=== PATIENT | female | born 2000 | race Caucasian/White ===

== ENCOUNTER 2020-02-21 18:39 | Emergency (ER) | payer OTHER, SELFPAY ==
--- NOTE | 2020-02-21 18:44 | ED.SKABFB ---
HPI - Skin/Abscess/Foreign Bdy General Chief complaint: Skin/Abscess/Foreign Body Stated complaint: possible spider bite Time Seen by Provider: 02/21/20 18:50 Source: patient and RN notes reviewed Mode of arrival: ambulatory Limitations: no limitations History of Present Illness HPI narrative: 19-year-old female presents with concern for possible bug bite on her buttock. Reports symptoms started on with an itchy bump. Reports the areas become slightly tender. She denies fever, chills, drainage from the area. Has no report of removing a tick, or any other insect. complaint: insect bite/sting Related Data Allergies Allergy/AdvReac Type Severity Reaction Status Date / Time No Known Allergies Allergy Mild Verified 05/09/10 16:52 Review of Systems Review of Systems: Narrative: CONSTITUTIONAL: Denies malaise, chills, sweats, or fever. ENT: Denies swollen lips, swollen tongue CARDIOVASCULAR: Denies chest pain, palpitations, or edema. RESPIRATORY: Denies cough or dyspnea. GASTROINTESTINAL: Denies nausea, vomiting, diarrhea SKIN: Reports itchy bump on her left buttock MUSCULOSKELETAL: Denies myalgia. All systems reviewed & are unremarkable except as noted in HPI and below PMFSH Comments At time of signature, agree with nursing past medical, surgical, social and family history. There is no relevant family history pertinent to the presenting complaint Exam Narrative: Exam Narrative: GENERAL: Well-appearing, well-nourished, and in no acute distress. HEAD: Normocephalic EYES: PERRLA, conjunctivae clear ENT: Mucous membranes moist. NECK: Supple. CHEST: No respiratory distress. Clear to auscultation. No bony deformities, no asymmetry. Speaks in full sentences. HEART: Regular rate and rhythm. No murmur heard. SKIN: Warm, dry. 2 pink papules noted to the left buttock with very mild surrounding erythema minimal induration less than 2 cm surrounding NEURO: Alert and oriented x3. PSYCH: Normal mood and affect Course Course Emergency Course: Patient is aware of diagnosis, understands and agrees to treatment plan. Anticipatory guidance given. Patient agrees to follow-up as directed and is aware of reasons to seek care at the emergency department. Portions of this record may have been created with voice recognition software Vital Signs Vital signs: Vital Signs Temperature 98.9 F 09/19/20 18:48 Pulse Rate 97 02/21/20 18:48 Respiratory Rate 18 02/21/20 18:48 Blood Pressure 129/73 02/21/20 18:48 Pulse Oximetry 100 02/21/20 18:48 Temperature 98.9 F 02/21/20 18:48 Pulse Rate 97 02/21/20 18:48 Respiratory Rate 18 02/21/20 18:48 Blood Pressure 129/73 02/21/20 18:48 Pulse Oximetry 100 02/21/20 18:48 Reviewed. MDM - Skin/Abscess/Foreign Bdy MDM Narrative Medical decision making narrative: Does not appear at this time to be erythema multiforme, bullous, SJS, TEN; no evidence at this time to suggest RMSF, endocarditis or Lyme disease; patient looks well, nontoxic and is tolerating oral intake; no neurologic signs or symptoms; no headache, photophobia or neck pain; afebrile; appropriate for initial outpatient treatment; discussed the importance of follow-up, patient agrees; question, viral exanthema, contact dermatitis, allergic dermatitis, eczema, urticaria, insect bite, cellulitis. No soft palate or uvula edema, no tongue, lip edema or other mucosal involvement, no respiratory compromise, no stridor, no wheezing, no wheezing, no history of syncope, no hypotension, no nausea, vomiting, or diarrhea. Instructed patient to go to nearest ER immediately for any worsening symptoms including but not limited to: fever, spreading rash, pain, sore throat, headache, dizziness, chest pain, trouble breathing, or any symptoms concerning to the patient. Differential Diagnosis Differential diagnosis: Likely abscess of skin or subcutaneous tissue, cellulitis and insect bites Critical Care Time Critical Ca
[2020-02-21 18:48] VITALS: BP 129/73; PULSE 97; RESP 18; TEMP 37.2; O2SAT 100
== END 2020-02-21 19:02 | disposition home or self-care (01) ==
PROVIDERS: Emergency Provider Nurse Practitioner
DX: S30.860A Insect bite (nonvenomous) of lower back and pelvis, initial encounter (principal); W57.XXXA Bitten or stung by nonvenomous insect and other nonvenomous arthropods, initial encounter
CPT/HCPCS: 99213; G0463

== ENCOUNTER 2020-07-08 14:29 | Emergency (ER) | payer OTHER, SELFPAY ==
--- NOTE | ~2020-07-08 | CT_ITS ---
EXAMINATION: CT abdomen pelvis w con DATE: 07/08/2020 17:03 INDICATION: Right flank pain. TECHNIQUE: Computed tomography (CT) of the abdomen and pelvis was performed with 99 mL Omnipaque 350 intravenous contrast. Automated exposure control and iterative reconstruction technique were employed . The dose-length product was 196.98 mGy-cm. COMPARISON: None. FINDINGS: The visualized portions of the lung bases are clear without pneumonia or pleural effusion. The heart size is normal. No pericardial effusion. The liver, gallbladder, spleen, pancreas, adrenal glands, and left kidney are normal. There is a 3 mm cyst in right kidney. There are no dilated loops of bowel. The appendix is normal. There are no pathologically enlarged lymph nodes. There is trace pe lvic ascites. The bones are unremarkable. IMPRESSION: 1. No etiology for the patient's symptoms. Reviewed, dictated and finalized at location [facility]. [facility] [employer]
[2020-07-08 14:47] VITALS: BP 93/62; PULSE 100; RESP 18; TEMP 36.3; O2SAT 100
[2020-07-08 15:17] LABS: Basophils Percent Auto 0.5 % (0.2-1.2); Eosinophils Absolute Auto 0.1 K/mm3 (0-0.3); Eosinophils Percent Auto 1.3 % (0-4.4); Hematocrit 35.6 % (37.0-47.0); Immature Granulocyte Absolute 0.03 K/mm3 (0.00-0.031); Immature Granulocyte Percent A 0.4 % (0-0.5); Lymphocytes Percent Auto 23.2 % (18.3-44.2); Mean Corpuscular HGB Conc 33.7 g/dl (32-36); Mean Corpuscular Hemoglobin 29.6 pg (26-34); Mean Corpuscular Volume 87.7 fl (80-100); Mean Platelet Volume 9.2 fl (7.4-10.4); Monocytes Absolute Auto 0.4 K/mm3 (0.1-0.6); Monocytes Percent Auto 4.8 % (2.6-8.5); Neutrophils Absolute Auto 5.4 K/mm3 (1.3-6.7); Neutrophils Percent Auto 69.8 % (45.5-73.1); Platelet Count Result 227 k/mm3 (150-375); Red Blood Count 4.06 M/mm3 (4.2-5.4); Red Cell Distribution Width 11.9 % (11.5-14.5); White Blood Count 7.8 K/mm3 (4.5-10.0)
[2020-07-08] MEDS: LACTATED RINGERS 1,000 ML 999 ML (15:29)
[2020-07-08 15:31] LABS: Blood Urea Nitrogen 18 mg/dL (7-17); Calcium 9.5 mg/dL (8.4-10.2); Carbon Dioxide 23 mmol/L (22-30); Chloride 105 mmol/L (98-107); Estimated CRCL calculation 70 ml/min; Estimated Glomerular Filt Rate > 60; Glucose 120 mg/dL (65-105); Potassium 3.3 mmol/L (3.4-5.0)
[2020-07-08 15:37] LABS: Anion Gap 10 mmol/L (8-16); Sodium 138 mmol/L (137-145)
[2020-07-08 16:10] LABS: Add Urine Microscopic? YES; Appearance Urine Clear (Clear); Bilirubin Urine Negative (Negative); Blood Urine 3+ (Negative); Color Urine Yellow (Yellow); Glucose Urine UA Negative (Negative); Ketones Urine Negative (Negative); Leukocyte Esterase Ur Negative LEU/UL (Negative); Mucus Urine Heavy /lpf; Nitrate Urine Negative (Negative); Protein Urine 1+ mg/dL (Negative); RBC Urine >75 /hpf (0-2); Specific Grav Ur 1.017 (1.001-1.035); Squamous Epithelial Cell Urine Rare /hpf (Few); Urobilinogen Urine Negative mg/dL (<2.0); WBC Urine 0-3 /hpf
--- NOTE | 2020-07-08 16:32 | ED.ABDPAIN ---
HPI - Abdominal Pain General Chief Complaint: Abdominal Pain Stated Complaint: Flank/Back Pain Time Seen by Provider: 07/08/20 14:53 Source: patient Mode of arrival: ambulatory Limitations: no limitations History of Present Illness HPI narrative: This 20-year-old female comes into the emergency department today with complaints of right lower back pain radiating from her lower back down towards her groin and abdomen. Patient states this has been going on for the past couple of days and has been getting progressively worse. She states it feels like a sharp stabbing pain. Patient denies ever having pain like this before. She notes that her period was a couple of weeks ago and normal for her. She notes she has been urinating with no difficulties and has had no problems with bowel movements. Related Data Allergies Allergy/AdvReac Type Severity Reaction Status Date / Time Iodinated Contrast Media Allergy Mild Hives Verified 07/08/20 18:54 Review of Systems Review of Systems: Narrative: CONSTITUTIONAL: Denies fever, chills, or sweats. EYES: Denies visual changes, redness, or discharge. ENT: Denies rhinorrhea, congestion, sore throat, or otalgia. CARDIOVASCULAR: Denies chest pain, palpitations, or edema. RESPIRATORY: Denies cough or dyspnea. GASTROINTESTINAL: Denies abdominal pain, nausea, vomiting, or diarrhea. GENITOURINARY: Denies dysuria or hematuria. Endorses right flank pain SKIN: Denies rash or itching. MUSCULOSKELETAL: Denies back pain, joint pain, or myalgia. NEUROLOGIC: Denies headache, numbness, dizziness, or weakness. PSYCHIATRIC: Denies anxiety or depression. Exam Narrative: Exam Narrative: GENERAL: Well-appearing, well-nourished, and in no acute distress. HEAD: Normocephalic, atraumatic. EYES: PERRLA and EOMI. ENT: Nares clear, no rhinorrhea or epistaxis. Mucous membranes moist. Oropharynx without tonsillar hypertrophy exudate or other lesions. Bilateral TMs pearly taylor nonbulging NECK: Supple. No adenopathy or masses. No carotid bruits or JVD CHEST: Clear to auscultation. No respiratory distress. No wheezes rales or rhonchi HEART: Regular rate and rhythm. No murmur heard. Normal peripheral pulses. ABDOMEN: Soft, nontender, nondistended, normal active bowel sounds. Right flank CVA tenderness EXTREMITIES: Normal range of motion. No edema. SKIN: Warm, dry, no rash. NEURO: No focal deficits. Alert and oriented x3. PSYCH: Normal mood and affect. Course Reevaluation(s) Reevaluation #1: Patient unfortunately likely had a reaction to the contrast from the CT scan. She returned from CT with pruritic hives. Patient was immediately given Benadryl and Solu-Medrol. I just reevaluated her and she is feeling better. Her hives are diminishing. Evaluated patient's pain did suddenly relieved prior to the CT scan. She stated that it stopped all at once and spontaneously. Mom's noted that they saw a little speck of something in her urine. In all likelihood based on the patient's story and exam she passed a kidney stone spontaneously. Time: 17:34 Reevaluation #2: Patient resting comfortably at this time she has had no resumption of her hives or any other allergic type symptoms. At this point feel she is safe for discharge. Time: 18:53 Vital Signs Vital signs: Vital Signs Temperature 36.3 C L 07/08/20 14:47 Pulse Rate 100 07/08/20 14:47 Respiratory Rate 18 07/08/20 14:47 Blood Pressure 93/62 L 07/08/20 14:47 Pulse Oximetry 100 07/08/20 14:47 Temperature 36.3 C L 07/08/20 14:47 Pulse Rate 100 07/08/20 14:47 Respiratory Rate 18 07/08/20 14:47 Blood Pressure 93/62 L 07/08/20 14:47 Pulse Oximetry 100 07/08/20 14:47 MDM - Abdominal Pain MDM Narrative Medical decision making narrative: In brief this is a 20-year-old female who came in with complaints of right lower flank pain. Patient had a sudden relief of her pain. Her urine was consistent with hematuria. This was likely secondary to a stone
[2020-07-08 17:00] VITALS: BP 118/72; PULSE 92; RESP 16; O2SAT 100
[2020-07-08] MEDS: diphenhydrAMINE HCl INJ 50 MG/ML VIAL 25 MG IV PUSH (17:22)
[2020-07-08] MEDS: methylPREDNISolone SOD SUCC 125 MG VIAL IV PUSH (17:22)
[2020-07-08 17:30] VITALS: BP 118/75; PULSE 95; RESP 18; O2SAT 100
[2020-07-08 19:09] VITALS: BP 113/67; PULSE 91; RESP 19; O2SAT 100
== END 2020-07-08 19:10 | disposition home or self-care (01) ==
PROVIDERS: Emergency Medicine Emergency Medical Services; Emergency Provider Emergency Medicine
DX: N20.0 Calculus of kidney (principal); T50.8X5A Adverse effect of diagnostic agents, initial encounter
CPT/HCPCS: 36415; 74177; 80048; 81001; 81025; 85025; 96361; 96374; 96375; 99284; J1200; J2930; J7120; Q9967

== ENCOUNTER 2020-12-23 04:17 | Emergency (ER) | payer OTHER, SELFPAY ==
[2020-12-23 04:22] VITALS: BP 99/66; PULSE 80; RESP 14; TEMP 37.7; O2SAT 100
[2020-12-23 04:42] LABS: Add Urine Microscopic? NO; Appearance Urine Clear (Clear); Bilirubin Urine Negative (Negative); Blood Urine Negative (Negative); Color Urine Yellow (Yellow); Glucose Urine UA Negative (Negative); Ketones Urine Negative (Negative); Leukocyte Esterase Ur Negative LEU/UL (Negative); Nitrate Urine Negative (Negative); Protein Urine Negative (Negative); Specific Grav Ur 1.015 (1.001-1.035); Urobilinogen Urine Negative mg/dL (<2.0)
[2020-12-23 04:44] VITALS: BP 111/68; PULSE 78
[2020-12-23 04:45] VITALS: BP 114/67; PULSE 87
[2020-12-23 04:46] VITALS: BP 119/68; PULSE 89
[2020-12-23 04:48] LABS: Basophils Percent Auto 0.2 % (0.2-1.2); Eosinophils Absolute Auto 0.1 K/mm3 (0-0.3); Eosinophils Percent Auto 0.6 % (0-4.4); Hematocrit 34.3 % (37.0-47.0); Hemoglobin 11.4 g/dL (12.0-15.0); Immature Granulocyte Absolute 0.03 K/mm3 (0.00-0.031); Immature Granulocyte Percent A 0.4 % (0-0.5); Lymphocytes Absolute Auto 1.02 K/mm3 (0.9-3.2); Lymphocytes Percent Auto 12.7 % (18.3-44.2); Mean Corpuscular HGB Conc 33.2 g/dl (32-36); Mean Corpuscular Hemoglobin 29.2 pg (26-34); Mean Corpuscular Volume 87.7 fl (80-100); Mean Platelet Volume 9.5 fl (7.4-10.4); Monocytes Absolute Auto 0.6 K/mm3 (0.1-0.6); Neutrophils Absolute Auto 6.3 K/mm3 (1.3-6.7); Neutrophils Percent Auto 79.1 % (45.5-73.1); Platelet Count Result 175 k/mm3 (150-375); Red Blood Count 3.91 M/mm3 (4.2-5.4); Red Cell Distribution Width 12.5 % (11.5-14.5)
[2020-12-23] MEDS: MORPHINE SULFATE (*CRX) 2 MG/ML INJ IV PUSH (05:00)
[2020-12-23] MEDS: ONDANSETRON INJ 4 MG/2 ML VIAL IV PUSH (05:00)
[2020-12-23] MEDS: SODIUM CHLORIDE 0.9% IV 1,000 ML 999 ML IV CONT (05:00)
[2020-12-23 05:08] LABS: Alanine Aminotransferase 44 U/L (4-35); Alkaline Phosphatase 48 U/L (38-126); Anion Gap 7 mmol/L (8-16); Aspartate Amino Transferase 84 U/L (14-36); Blood Urea Nitrogen 9 mg/dL (7-17); Calcium 9.3 mg/dL (8.4-10.2); Carbon Dioxide 27 mmol/L (22-30); Chloride 99 mmol/L (98-107); Estimated CRCL calculation 79 ml/min; Estimated Glomerular Filt Rate > 60; Glucose 103 mg/dL (65-110); Lipase 57 U/L (23-300); Potassium 3.8 mmol/L (3.4-5.0); Sodium 133 mmol/L (137-145)
--- NOTE | 2020-12-23 05:16 | ED.GENADULT ---
HPI - General Adult General Chief complaint: Nausea/Vomiting/Diarrhea Stated complaint: tonsilectomy tues - n/v Time Seen by Provider: 12/23/20 04:29 History of Present Illness HPI narrative: Patient 20-year-old female presents the emergency department with chief complaint of nausea and vomiting. Patient reports that she had her tonsils removed this week was doing somewhat okay pain was controlled with p.o. Percocet tonight started having nausea and vomiting patient reports she was unable to keep anything down reports that she feels very dehydrated the patient reports that her pain is not doing terrible this evening the patient states that she had no fevers with this no diarrhea reports no shortness of breath denies any vomiting or spitting up of blood Related Data Allergies Allergy/AdvReac Type Severity Reaction Status Date / Time Iodinated Contrast Media Allergy Mild Hives Verified 12/23/20 04:26 Review of Systems Review of Systems: Narrative: A 10 system review of systems was completed on the patient and is negative except for what is stated in the HPI. Nursing and ancillary documentation was reviewed. [facility], [facility] Social History Social History Gender identity (if verbalized by the patient): Female Exam Narrative: Exam Narrative: GENERAL: Well-appearing, well-nourished, and in no acute distress. HEAD: Normocephalic, atraumatic. EYES: PERRLA and EOMI. ENT: Nares clear, no rhinorrhea or epistaxis. Mucous membranes moist. Oropharynx there is eschar in place there is no active bleeding NECK: Supple. CHEST: Clear to auscultation. No respiratory distress. HEART: Regular rate and rhythm. No murmur heard. Normal peripheral pulses. ABDOMEN: Soft, nontender, nondistended, normal active bowel sounds. EXTREMITIES: Normal range of motion. No edema. SKIN: Warm, dry, no rash. NEURO: No focal deficits. Alert and oriented x3. PSYCH: Normal mood and affect. Course Vital Signs Vital signs: Vital Signs Temperature 37.7 C H 12/23/20 04:22 Pulse Rate 80 12/23/20 04:22 Respiratory Rate 14 12/23/20 04:22 Blood Pressure 99/66 L 12/23/20 04:22 Pulse Oximetry 100 12/23/20 04:22 Temperature 37.7 C H 12/23/20 04:22 Pulse Rate 72 12/23/20 05:39 Respiratory Rate 15 12/23/20 05:39 Blood Pressure 103/62 12/23/20 05:39 Pulse Oximetry 99 12/23/20 05:39 Medical Decision Making Vital Signs Vital Signs: Vital Signs Temperature 37.7 C H 12/23/20 04:22 Pulse Rate 80 12/23/20 04:22 Respiratory Rate 14 12/23/20 04:22 Blood Pressure 99/66 L 12/23/20 04:22 Pulse Oximetry 100 12/23/20 04:22 Temperature 37.7 C H 12/23/20 04:22 Pulse Rate 72 12/23/20 05:39 Respiratory Rate 15 12/23/20 05:39 Blood Pressure 103/62 12/23/20 05:39 Pulse Oximetry 99 12/23/20 05:39 Lab Data Result diagrams: 12/23/20 04:39 12/23/20 04:39 Labs: Lab Results 12/23/20 12/23/20 12/23/20 Range/Units 04:33 04:39 04:39 WBC 8.0 (4.5-10.0) K/mm3 RBC 3.91 L (4.2-5.4) M/mm3 Hgb 11.4 L (12.0-15.0) g/dL Hct 34.3 L (37.0-47.0) % MCV 87.7 (80-100) fl MCH 29.2 (26-34) pg MCHC 33.2 (32-36) g/dl RDW 12.5 (11.5-14.5) % Plt Count 175 (150-375) k/mm3 MPV 9.5 (7.4-10.4) fl Immature Gran % (Auto) 0.4 (0-0.5) % Neut % (Auto) 79.1 H (45.5-73.1) % Lymph % (Auto) 12.7 L (18.3-44.2) % [place] % (Auto) 7.0 (2.6-8.5) % Eos % (Auto) 0.6 (0-4.4) % Baso % (Auto) 0.2 (0.2-1.2) % Lymph # (Auto) 1.02 (0.9-3.2) K/mm3 [place] # (Auto) 0.6 (0.1-0.6) K/mm3 Eos # (Auto) 0.1 (0-0.3) K/mm3 Baso # (Auto) 0.0 (0.0-0.1) K/mm3 Abs Immat Gran (auto) 0.03 (0.00-0.031) K/mm3 Absolute Neuts (auto) 6.3 (1.3-6.7) K/mm3 Absolute Nucleated RBC 0.0 (0.0-0.012) K/mm3 Nucleated RBC % 0.0 (0.0-0.2) % Sodium 133 L (137-145) mmol/L Potassium
[2020-12-23 05:39] VITALS: BP 103/62; PULSE 72; RESP 15; O2SAT 99
[2020-12-23 06:43] VITALS: BP 105/62; PULSE 77; RESP 18; O2SAT 98
== END 2020-12-23 06:45 | disposition home or self-care (01) ==
PROVIDERS: Emergency Provider Emergency Medicine; PCP Family Medicine Sports Medicine
DX: R11.2 Nausea with vomiting, unspecified (principal); Z98.890 Other specified postprocedural states
CPT/HCPCS: 36415; 80053; 81003; 81025; 83690; 85025; 96361; 96374; 96375; 99284; J2270; J2405; J7030

== ENCOUNTER 2022-01-08 19:04 | Emergency (ER) | payer OTHER, SELFPAY ==
[2022-01-08 19:12] VITALS: BP 132/85; PULSE 79; RESP 18; TEMP 36.2; O2SAT 100
--- NOTE | 2022-01-08 19:14 | ED.SKABFB ---
HPI - Skin/Abscess/Foreign Bdy General Chief complaint: Skin/Abscess/Foreign Body Stated complaint: Rash Time Seen by Provider: 01/08/22 19:14 Source: patient Mode of arrival: ambulatory Limitations: no limitations History of Present Illness HPI narrative: 21 yo F presents with redness, swelling to R thigh with itching. Started last night and progressed while at work. Has not taken any medications to treat itching. Thinks she has insect bite. All systems reveiwed and negative except as noted above. Related Data Home Medications Medication Instructions Recorded Confirmed drospirenone 3 mg-ethinyl 1 tablet PO DAILY 01/08/22 01/08/22 estradiol 0.02 mg tablet (Sharron (28)) Allergies Allergy/AdvReac Type Severity Reaction Status Date / Time Iodinated Contrast Media Allergy Mild Hives Verified 01/08/22 19:24 Review of Systems Review of Systems: CONSTITUTIONAL: Denies fever, chills, or sweats. EYES: Denies visual changes, redness, or discharge. ENT: Denies rhinorrhea, congestion, sore throat, or otalgia. CARDIOVASCULAR: Denies chest pain, palpitations, or edema. RESPIRATORY: Denies cough or dyspnea. GASTROINTESTINAL: Denies abdominal pain, nausea, vomiting, or diarrhea. GENITOURINARY: Denies dysuria or hematuria. SKIN: Reports redness, swelling, itching right thigh. MUSCULOSKELETAL: Denies back pain, joint pain, or myalgia. NEUROLOGIC: Denies headache, numbness, or weakness. PSYCHIATRIC: Denies anxiety or depression. All other systems reviewed are negative, except as documented in HPI. PMFSH Social History Social History Gender identity (if verbalized by the patient): Female Comments At time of signature, agree with nursing past medical, surgical, social and family history. There is no relevant family history pertinent to the presenting complaint. Exam Narrative: GENERAL: This is a well-nourished, well-developed patient, in no apparent distress. HEAD: normocephalic, atraumatic. EYES: PERRL. Sclera clear/white. Vision is grossly intact. EARS: External ears normal NOSE: External nose normal NECK: Neck supple, non-tender without lymphadenopathy, masses or thyromegaly. CARDIOVASCULAR: Regular rate and rhythm without murmurs, gallops, or rubs. RESPIRATORY: Clear to auscultation. Breath sounds equal bilaterally. No wheezes, rales, or rhonchi. SKIN: warm, Dry, intact with no suspicious lesions or rash, good texture and turgor. erythema, mild swelling, warm to touch. approx. 6cm diameter. no induration or fluctuance. NEURO: awake, alert, and oriented to person, place and time. There were no obvious focal neurologic abnormalities. EXTREMITIES: No joint tenderness, effusion, or edema noted. Extrem: Upper/lower leg/hip images: 1. insect bite R thigh Course Course Level of Care: Express Care Visit Vital Signs Vital signs: Vital Signs Temperature 36.2 C L 01/08/22 19:12 Pulse Rate 79 01/08/22 19:12 Respiratory Rate 18 01/08/22 19:12 Blood Pressure 132/85 01/08/22 19:12 Pulse Oximetry 100 01/08/22 19:12 Oxygen Delivery Room Air 01/08/22 19:12 Temperature 36.2 C L 01/08/22 19:12 Pulse Rate 79 01/08/22 19:12 Respiratory Rate 18 01/08/22 19:12 Blood Pressure 132/85 01/08/22 19:12 Pulse Oximetry 100 01/08/22 19:12 Oxygen Delivery Room Air 01/08/22 19:12 reviewed MDM - Skin/Abscess/Foreign Bdy MDM Narrative Medical decision making narrative: Patient is aware of diagnosis, understands and agrees to treatment plan. Anticipatory guidance given. Patient agrees to follow-up as directed and is aware of reasons to seek care at the emergency department. Portions of this record may have been created with voice recognition software Discharge Plan Discharge Clinical Impression: Insect bite of right thigh Patient Disposition: Home, Self-Care Condition: Stable Instructions: Antibiotic Form, Insec
== END 2022-01-08 19:25 | disposition home or self-care (01) ==
PROVIDERS: Emergency Provider Nurse Practitioner Family; PCP Family Medicine Sports Medicine
DX: S70.361A Insect bite (nonvenomous), right thigh, initial encounter (principal); W57.XXXA Bitten or stung by nonvenomous insect and other nonvenomous arthropods, initial encounter
CPT/HCPCS: 99211; G0463

== ENCOUNTER 2024-10-03 19:40 | Outpatient (CLI) | payer OTHER, SELFPAY ==
--- OUTSIDE RECORDS SUMMARY | 2024-10-04 15:17 | XMS_ITS | Clinical Summary ---
Author Organization [facility] Address [facility] [place] [address] Care Team Providers Care Skidder Loader Name Role Phone Salina Walker MD Primary Care Provider + Encounters Date Type Department Care Team Description 09/26/2024 Telephone [facility] el[facility] [address] [place] [address] Salina Walker MD Orders (30Day Event Monitor Order) from Last 3 Months Social History Tobacco Use Types Packs/Day Years Used Date Smoking Tobacco: Never Assessed Comments Unknown Sex and Gender Information Value Date Recorded Sex Assigned at Not on file Legal Sex Female 1:55 PM CDT Gender Identity Not on file Sexual Orientation Not on file Plan of Treatment Upcoming Encounters Date Type Department Care Team (Late st Contact Info) Description 10/08/2024 11:15 AM CDT [facility] [address] [place] [address] Salina Walker MD [address] [place] [address] Health Maintenance Due Date Last Done Comments Cervical Cancer Screening Pa p Smear (Age 21 to 29) Every 3 Years 2000 Cervical Cancer Screening 2000 Annual Physical 2003 HPV Vaccines (1 - 3-dose series) 2015 Hepatitis C 2018 DTaP, Tdap and Td Vaccines ( 1 - Tdap) 2019 Hepatitis B Vaccines (1 of 3 - 19+ 3-dose series) 2019 COVID-19 Vaccine (2023-2 5 season) 2024 Meningococcal B Vaccine Aged Out No l onger eligible based on patient's age to complete this topic Meningococcal Vaccine Aged Out No dina cheryl eligible based on patient's age to complete this topic Pneumococcal Vaccine: Pediat rics (0 to 5 Years) and At-Risk Patients (6 to 49 Years) Aged Out No longer eligible b ased on patient's age to complete this topic RSV Immunizations Under 20 Months Aged Out No longer eligible based on patient's age to complete this topic Care Teams Skidder Loader Relationship Specialty [place] [address] [place] [id number] PCP - General FAMILY PRACTICE 09/24/24
--- OUTSIDE RECORDS SUMMARY | 2024-10-04 15:17 | XMS_ITS | Data Portability ---
Author Organization [facility], [address] [facility] ([place]) Address [address] [address] Care Team Providers Care Collision Repair Technician Name Role Phone SALINA GALARZA Primary Care Provider [phone] Assessment Encounter Date Assessment Date Assessment LastModified by Organization Details LastModified Time 09/17/2024 09/17/2024 1. Overall, patient is healthy. She does have some fainting/synco pe episodes since she was a teenager. After discussion, it sounds like she had a pretty extensive workup and there was no at least major cause. I suspect probably orthostatic versus vasovagal. We will check some lab work today just to ensure nothing has changed. We did discuss another heart monitor but we are going to see what the lab work comes back as first. 2. Patient did need a school physical completed today. 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 We did note there are a few vaccines missing. I suspect it has probably been a while since she probably had them, but we will go ahead and get titers of these since she only had 1 dose of her varicella and MMR and she does need these to attend school. She will also need the TB QuantiFERON gold and she will also get her Tdap booster today as it has been over 10 years since she last had it. 3. Patient also uses control. She uses Sharron and has been stable on this. We will provide refills. 4. Patient will follow-up in 1 year or of course sooner as needed. We will be in touch once her lab work does come back. I personally spent a total of 40 minutes on the patient on this date of service including both mlfn-[id number] and xut-gumh-mk-fa ce time excluding any separately reportable services. CJO [email or web address] Not available 09/17/2024 22:02:50 Plan of Treatment Reminders Order Date Submit Date Provider Last Modified By Organization Details Last Modified Time Details Appointments None recorded. Lab TSH, serum or plasma 2024 [facility], [address] [place] [address], [id number], 5 15:27:53 iron panel, serum or plasma 2024 025 [facility], [address] [place] [address], [id number], 5 15:34:01 CBC w/ auto diff 2024 [facility], [address] [place] [address], [id number], 5 15:18:17 CMP, serum or plasma 2024 025 [facility], [address] [place] [address], [id number], 5 15:34:03 varicella zoster virus IgG Ab, QN, IA, serum 2024 [facility], [address] [place] [address], [id number], 5 07:40:09 measles igg Ab, serum 2024 025 [facility], [address] [place] [address], [id number], 5 07:40:11 mumps igg Ab, titer, serum 2024 025 [facility], [address] [place] [address], [id number], 5 04:29:57 rubella IgG Ab, quant immunoassa y, serum or plasma 2024 025 [facility], [address] [place] [address], [id number], 04:29:58 TB (M tuberculos is), IFN-gamma+ mitogen-ga mma, blood 2024 025 [facility], [address] [place] [address], [id number], 13:22:00 Referral None recorded. Procedures None recorded. Surgeries None recorded. Imaging None recorded. Medication Orders Sharron (28) 3 mg-0.02 mg tablet 2024 [id number], [address] [place] [address], [id number], 12:32:22 Patient TargetsNo targets recorded. Patient InstructionsNo instructions recorded. Reason for Referral None Reported. Results Created Date Observation Date Name Description Value Unit Range Abnormal Flag Note LastModifiedBy Organization Detail LastModifiedTime 09/18/1909/18/2024 CBC w/ auto diff CBC with differential Not Available [facility] [address] [place] [address], [id number], 09/18/2024 15:18:17 09/18/1909/18/2024 CBC w/ auto diff WBC 5.9 K/uL 3.8-11 .2 Not Available [facility] [address] [place] [address], [id number], 09/18/2024 15:18:17 09/18/1909/18/2024 CBC w/ auto diff RBC 4.30 M/uL 3.92-5 .10 Not Available [facility] [address] [place] [address], [id number], 09/18/2024 15:18:17 09/18/19 25 09/18/2024 CBC w/ auto diff HGB 12.6 g/dL 11.8-1 5.3 Not Available [facility] [address] [place] [address], [id number], 09/18/2024 15:18:17 09/18/19 25 09/18/2024 CBC w/ auto diff HCT 38.0 % 36.5-4 4.8 Not Available [facility] [address] [place] [address], [id number], 09/18/2024 15:18:17 09/18/19 25 09/18/2024 CBC w/ auto diff MCV 88.4 fL 80.0-9 9.0 Not Available [facility] [address] [place] [address], [id number], 09/18/2024 15:18:17 09/18/19 25 09/18/2024 CBC w/ auto diff MCH 29.3 pg 25.5-3 3.6 Not Available [facility] [address] [place] [address], [id number], 09/18/2024 15:18:17 09/18/19 25 09/18/2024 CBC w/ auto diff MCHC 33.2 g/dL 32.0-3 6.0 Not Available [facility] [address] [place] [address], [id number], 09/18/2024 15:18:17 09/18/19 25 09/18/2024 CBC w/ auto diff RDW-SD 39.2 fL 35.1 - 46.3 Not Available [facility] [address] [place] [address], [id number], 09/18/2024 15:18:17 09/18/19 25 09/18/2024 CBC w/ auto diff plt 276 K/uL 130-40 0 Not Available [facility] [address] [place] [address], [id number], 09/18/2024 15:18:17 09/18/19 25 09/18/2024 CBC w/ auto diff MPV 10.2 fL 9.3-12 .8 Not Available [facility] [address] [place] [address], [id number], 09/18/2024 15:18:17 09/18/19 25 09/18/2024 CBC w/ auto diff theron% 58.6 % not estab Not Available [facility] [address] [place] [address], [id number], 09/18/2024 15:18:17 09/18/19 25 09/18/2024 CBC w/ auto diff lym% 30.6 % not estab Not Available [facility] [address] [place] [address], [id number], 09/18/2024 15:18:17 09/18/19 25 09/18/2024 CBC w/ auto diff mono% 8.1 % not estab Not Available [facility] [address] [place] [address], [id number], 09/18/2024 15:18:17 09/18/19 25 09/18/2024 CBC w/ auto diff eos% 1.7 % not estab Not Available [facility] [address] [place] [address], [id number], 09/18/2024 15:18:17 09/18/19 25 09/18/2024 CBC w/ auto diff baso% 0.8 % not estab Not Available [facility] [address] [place] [address], [id number], 09/18/2024 15:18:17 09/18/19 25 09/18/2024 CBC w/ auto diff abs theron 3.5 K/uL 1.8-7. 5 Not Available [facility] [address] [place] [address], [id number], 09/18/2024 15:18:17 09/18/19 25 09/18/2024 CBC w/ auto diff abs lym 1.8 K/uL 1.1-3. 3 Not Available [facility] [address] [place] [address], [id number], 09/18/2024 15:18:17 09/18/19 25 09/18/2024 CBC w/ auto diff abs mono 0.5 K/uL 0.1-1. 0 Not Available [facility] [address] [place] [address], [id number], 09/18/2024 15:18:17 09/18/19 25 09/18/2024 CBC w/ auto diff abs eos 0.1 K/uL 0.0-0. 7 Not Available [facility] [address] [place] [address], [id number], 09/18/2024 15:18:17 09/18/19 25 09/18/2024 CBC w/ auto diff abs baso 0.1 K/uL 0.0-0. 2 Not Available [facility] [address] [place] [address], [id number], 09/18/2024 15:18:17 09/18/19 25 09/18/2024 CBC w/ auto diff imm. gran % 0.2 % 0-5 Not Available [facility] [address] [place] [address], 53524, 09/18/2024 15:18:17 09/18/19 25 09/18/2024 CBC w/ auto diff NRBC % 0.0 % 0.0-0. 2 Not Available [facility] [address] [place] [address], [id number], 09/18/2024 15:18:17 09/18/19 25 09/18/2024 TSH, serum or plasm a TSH; reflex to free T4 Not Available [facility] [address] [place] [address], [id number], 09/18/2024 15:27:53 09/18/19 25 09/18/2024 TSH, serum or plasm a TSH3 1.321 uIU/m L .340-5 .600 Not Available [facility] [address] [place] [address], [id number], 09/18/2024 15:27:53 09/18/19 25 09/18/2024 iron panel , serum or plasm a iron panel Not Available [facility] [address] [place] [address], [id number], 09/18/2024 15:36:20 09/18/19 25 09/18/2024 iron panel , serum or plasm a iron 92 ug/dL 50-212 Sampl e sligh tly hemol yzed, resul ts may be false ly decre ased. Not Available [facility] [address] [place] [address], [id number], 09/18/2024 15:36:20 09/18/19 25 09/18/2024 iron panel , serum or plasm a % saturation 22 % 20-55 Not Available [facility] [address] [place] [address], [id number], 09/18/2024 15:36:20 09/18/19 25 09/18/2024 iron panel , serum or plasm a ferritin 16 NG/mL 12-150 Not Available [facility] [address] [place] [address], [id number], 09/18/2024 15:36:20 09/18/19 25 09/18/2024 iron panel , serum or plasm a TIBC. 420 ug/dL 205 - 512 Not Available [facility] [address] [place] [address], [id number], 09/18/2024 15:36:20 09/18/19 25 09/18/2024 CMP, serum or plasm a comp. met. panel Not Available [facility] [address] [place] [address], [id number], 09/18/2024 15:34:03 09/18/19 25 09/18/2024 CMP, serum or plasm a sodium 136 mmol/ L 136-14 6 Not Available [facility] [address] [place] [address], [id number], 09/18/2024 15:34:03 09/18/19 25 09/18/2024 CMP, serum or plasm a potassium 4.1 mmol/ L 3.5-5. 1 Not Available [facility] [address] [place] [address], [id number], 09/18/2024 15:34:03 09/18/19 25 09/18/2024 CMP, serum or plasm a chloride 100 mmol/ L 98-110 Not Available [facility] [address] [place] [address], [id number], 09/18/2024 15:34:03 09/18/1909/18/2024 CMP, serum or plasm a CO2 25 mEq/L 20-32 Not Available [facility] [address] [place] [address], [id number], 09/18/2024 15:34:03 09/18/19 25 09/18/2024 CMP, serum or plasm a anion gap 15 mmol/ L 10-22 Not Available [facility] [address] [place] [address], 85035, 09/18/2024 15:34:03 09/18/1909/18/2024 CMP, serum or plasm a glucose 76 mg/dL 70-100 Not Available [facility] [address] [place] [address], 14246, 09/18/2024 15:34:03 09/18/1909/18/2024 CMP, serum or plasm a calcium 9.5 mg/dL 8.4-10 .4 Not Available [facility] [address] [place] [address], 83311, 09/18/2024 15:34:03 09/18/1909/18/2024 CMP, serum or plasm a total protein 7.6 g/dL 6.4-8. 3 Not Available [facility] [address] [place] [address], 86800, 09/18/2024 15:34:03 09/18/19 25 09/18/2024 CMP, serum or plasm a albumin 4.7 g/dL 3.5-5. 3 Not Available [facility] [address] [place] [address], 49749, 09/18/2024 15:34:03 09/18/19 25 09/18/2024 CMP, serum or plasm a ALP 47 U/L 44 - 127 Not Available [facility] [address] [place] [address], [id number], 09/18/2024 15:34:03 09/18/19 25 09/18/2024 CMP, serum or plasm a AST (SGOT) 22 U/L 10-40 Not Available [facility] [address] [place] [address], [id number], 09/18/2024 15:34:03 09/18/19 25 09/18/2024 CMP, serum or plasm a total bilirubin 0.8 mg/dL 0.2-1. 2 Not Available [facility] [address] [place] [address], [id number], 09/18/2024 15:34:03 09/18/19 25 09/18/2024 CMP, serum or plasm a ALT (SGPT) 15 U/L 8-35 Not Available [facility] [address] [place] [address], [id number], 09/18/2024 15:34:03 09/18/19 25 09/18/2024 CMP, serum or plasm a BUN 15 mg/dL 7-21 Not Available [facility] [address] [place] [address], [id number], 09/18/2024 15:34:03 09/18/19 25 09/18/2024 CMP, serum or plasm a creatinine 0.7 mg/dL 0.7-1. 3 Not Available [facility] [address] [place] [address], [id number], 09/18/2024 15:34:03 09/18/19 25 09/18/2024 CMP, serum or plasm a CKD-epi GFR 124 eGFR was calcu lated using the 2020 CKD-E PI equat ion. (Electrical Journeyman paul Bernardo y Gilberto se has an eGFR less than 60 mL/mi n/1.7 3mm for a perio d of three month s or more. ) This calcu latio n has not been valid ated for patie nt ages <18 or >90 years old. Not Available [facility] [address] [place] [address], [id number], 09/18/2024 15:34:03 09/18/19 25 09/19/2024 varic rossi zoste r virus IgG Ab, QN, IA, serum varicella zoster IgG REACTI VE Ple ase note refer ence inter maximus garcia e A React zuleima resul t is consi dered evide nce of immun ity to VZV. React zuleima indic ates that VZV IgG was detec radha consi stent with previ ous infec tion and/o r vacci natio n. A Non React zuleima resul t indic ates that VZV IgG was not detec radha sugge sting that immun ity has not been acqui red. Not Available [facility] [address] [place] [address], [id number], 09/19/2024 07:40:09 09/18/19 25 09/19/2024 measl es igg Ab, serum measles IgG Ab (rubeola) 31.6 AU/mL Negat zuleima <13.5 Equiv ocal 13.5 - 16.4 Posit zuleima >16.4 Prese nce of antib odies to Rubeo la is presu mptiv e evide nce of immun ity excep t when acute infec tion is suspe cted. Not Available [facility] [address] [place] [address], [id number], 09/19/2024 07:40:11 09/18/19 25 09/20/2024 TB (M tuber culos is), IFN-g mandi+ mitog en-ga mma, blood quant TB gold Not Available [facility] [address] [place] [address], [id number], 09/20/2024 13:22:00 09/18/19 25 09/20/2024 TB (M tuber culos is), IFN-g mandi+ mitog en-ga mma, blood TB gold 0.01 IU/mL <=0.34 Not Available [facility] [address] [place] [address], [id number], 09/20/2024 13:22:00 09/18/19 25 09/20/2024 TB (M tuber culos is), IFN-g mandi+ mitog en-ga mma, blood TB gold 2 0.01 IU/mL <=0.34 Not Available [facility] [address] [place] [address], [id number], 09/20/2024 13:22:00 09/18/19 25 09/20/2024 TB (M tuber culos is), IFN-g mandi+ mitog en-ga mma, blood TB quant interp Negat zuleima M. tuber culos is infec tion (late nt tuber culos is or tuber culos is disea se) unlik randi. The resul ts of Quant iFERO N TB Gold testi ng must be inter prete d in conju nctio n with other epide miolo gical , histo rical , medic al, and diagn ostic findi ngs. Not Available [facility] [address] [place] [address], [id number], 09/20/2024 13:22:00 Result Notes None recorded. Problems Name Problem SNOMED Code Status Onset Date Resolution Date Notes Provider Name and Address Organization Details Recorded Time Syncope 635723433 Active 025 Salina Galarza MD [address] [place] [address], [id number] , [facility] 09/17/2024 12:18:31 Problem Notes None recorded. Procedures Surgical History Date Name Laterality Status Provider Name and Address Organization Details Recorded Time Tonsillectomy completed [facility] 09/17/2024 11:42:23 Imaging Results None recorded. Procedure Notes None recorded. Medical Equipment None Reported. Allergies No known drug allergies Medications Name Sig Start Date Stop Date Status Note LastModified by Organization Details LastModified Time sulfamethox azole 800 mg-trimetho prim 160 mg tablet TAKE 1 TABLET BY MOUTH TWICE A DAY FOR 7 DAYS 09/17 completed Not Available Not Available Not Available oseltamivir 75 mg capsule TAKE 1 CAPSULE BY MOUTH TWICE A DAY 09/17 completed Not Available Not Available Not Available rizatriptan 5 mg disintegrat ing tablet PLEASE SEE ATTACHED FOR DETAILED DIRECTION S 09/17 completed Not Available Not Available Not Available Sharron (28) 3 mg-0.02 mg tablet Take 1 tablet every day by oral route for 90 days. 2024 active Not Available Not Available Not Avai lable Vitals Date Recorded Body weight Body mass index (BMI) Body height Body temperature Respiratory rate Oxygen saturation Oxygen saturation in Arterial blood by Pulse oximetry Heart rate Systolic blood pressure Diastolic blood pressure Provider Name and Address Organization Details Last Updated DateTime 11988.5 7 g 19.9 kg/m2 157.48 cm 97.7 [degF] 20 /min 99 % 99 % 99 /min 112 mm[Hg] 78 mm[Hg] [facility] 11:43:39 Social History None recorded. Functional Status None recorded. Mental Status None recorded. Family History Relationship Description Onset Age of this Age Resolved Age Notes LastModified by Organization Details LastModified Time Mother Malignant tumor of breast [id number] Not available 09/17 11:41:40 Maternal Aunt Myocardial infarction [email or web address] Not available 09/02 11:42:02 Maternal Aunt Diabetes mellitus [id number] Not available 09/17 11:42:09 Maternal Uncle Myocardial infarction [id number] Not available 09/02 11:42:02 Medical History No medical history recorded. Gynecological HistoryNo gynecological history recorded. Obstetrics History GPAL:G 0 P 0 0 0 0 Immunizations Vaccine Type Date Status Note Provider Nam e and Address Organization Details Recorded Time Influenza, MDCK, quadrivalent, preservative 9 completed Alondra Phoenixer [facility] 09/17/2024 11:49:23 COVID-19, mRNA, LNP-S, PF, 30 mcg/0.3 mL dose 1 [facility] 11:49:23 COVID-19, mRNA, LNP-S, PF, 30 mcg/0.3 mL dose 1 completed Alondra Copeland [facility] 09/17/2024 11:49:23 Influenza, split virus, trivalent, PF 7 completed Alondra Copeland [facility] 09/17/2024 11:49:23 DTaP, unspecified formulation 1 completed Alondra Copeland [facility] 09/17/2024 11:50:07 DTaP, unspecified formulation 1 completed Alondra Copeland [facility] 09/17/2024 11:50:12 DTaP, unspecified formulation 1 completed Alondra Copeland [facility] 09/17/2024 11:50:18 DTaP, unspecified formulation 4 completed Alondra Copeland [facility] 09/17/2024 11:50:24 IPV 1 completed Alondra Copeland [facility] 09/17/2024 11:50:40 IPV 1 [facility] 11:50:47 IPV 2 completed [facility] 11:51:13 Hib, unspecified formulation 1 [facility] 11:51:27 Hib, unspecified formulation 1 completed Alondra Copeland null, [facility] 09/17/2024 11:51:34 Hib, unspecified formulation 1 completed Alondra Copeland null, [facility] 09/17/2024 11:51:40 MMR 1 completed Alondra Copeland null, [facility] 09/17/2024 11:51:56 Hep B, unspecified formulation 0 completed Alondra Copeland null, [facility] 09/17/2024 11:52:11 Hep B, unspecified formulation 1 completed Alondra Copeland null, [facility] 09/17/2024 11:52:17 Hep B, unspecified formulation 1 completed Alondra Copeland null, [facility] 09/17/2024 11:52:23 varicella 2 completed Alondra Copeland null, [facility] 09/17/2024 11:52:48 pneumococcal, unspecified formulation 1 completed Alondra Copeland null, [facility] 09/17/2024 11:53:20 pneumococcal, unspecified formulation 1 [facility] 11:53:27 pneumococcal, unspecified formulation 1 [facility] 11:53:33 pneumococcal, unspecified formulation 2 completed Alondra Copeland null, [facility] 09/17/2024 11:53:40 Tdap 5 completed Salina Galarza MD [facility] [address], [address], [facility] 09/18/2024 10:21:11 Past Encounters Encounter ID Performer Location Encounter Start Date Encounter Closed Date Diagnosis/Indication Diagnosis SNOMED-CT Code Diagnosis ICD10 Code Diagnosis Note [id number] Salina Galarza MD [address] [place] [place] [address] 09/17/2024 11:33:42 09/17/2024 12:53:40 Syncope 616731873 R55 Counseling procedure with explicit context 538644247 Z71.85 Tuberculos is screening status 586639465 Z11.1 History an d physical examination, annual for health maintenance 68293789 Z00.00 First enco unter by subject 371267343 Z76.89 Uses contraception 49835 004 Z78.9 History an d physical examination, school 80958356 Z02.0 Health Concerns Section Related Observation LastModified by Organization Detai ls LastModified Time None Recorded Concern Status LastModified by Organization Details LastModified Time None Recorded Advance Directives Directive None Recorded Payers Encounter Date Sequence Insurance Name Policy Number Policy Stubbs Covered Member ID Stubbs Member ID Guarantor Name 09/17/[address] [employer] [facility] (POS II) [id number] Payton Deshpande [id number] Payton Deshpande Notes Date Note Type Note Provider Name and Address Organization Details Recorded Time 09/17/2024 text/html The patient is here today for a new patient visit to establish care. She was previously a patient of Dr. Vaughan in [place]. She has a physical she needs to have completed for school. Does note hx of fainting/syncope starting when she was a teen. Started with hot showers and can occurr randomly now. Had previous workup as a teen that included blood work and heart monitors. 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
[2024-10-06 15:37] LABS: Mumps Virus IgG Antibody <9.00 AU/mL; Rubella IgG Antibody <0.90 Index
== END 2024-10-03 19:41 | disposition home or self-care (01) ==
LOC: CHSLAB 19:43
PROVIDERS: PCP Family Medicine; Visit Provider Family Medicine
DX: Z71.85 Encounter for immunization safety counseling (principal)
CPT/HCPCS: 36415; 86735; 86762